=== PATIENT | male | born 1980 | race African-American/Black ===

== ENCOUNTER 2019-08-13 08:54 | Emergency (ER) | payer OTHER ==
[~2019-08-13] VITALS: Ht 180.3 cm; Wt 104.8 kg
--- NOTE | 2019-08-13 08:56 | NUR ---
BIBA RA 860 Neck/nape/weak "Was driving started havin pain in the back of neck/nape. [place] Weak". to ER bed 10, hooked to bp monitor and pox, changed to hosp gown, warm blanket provided, patient aao x 4, breathing even and unlabored, Dr Sethi at bedside for eval.
[2019-08-13] MEDS ORDERED: IBUPROFEN 400 MG TABLET ONE (09:16)
[2019-08-13] MEDS ORDERED: IBUPROFEN 400 MG TABLET PO ONE (09:30)
--- NOTE | 2019-08-13 09:38 | NUR ---
PICKED UP BY MEDICATION TECHNICIAN, WHEELED OUT VIA [facility] FOR CT SCAN.
--- NOTE | 2019-08-13 10:42 | NUR ---
Patient discharged to home in stable condition. Written and verbal after care instructions given. Patient verbalizes understanding of instruction.
[2019-08-13 10:43] VITALS: BP 157/99
== END 2019-08-13 10:43 | disposition home or self-care (01) ==
LOC: ER 08:56
DX: M62.838 Other muscle spasm (principal); M54.2 Cervicalgia; E11.9 Type 2 diabetes mellitus without complications
CPT/HCPCS: 72125-TC